=== PATIENT | male | born 1940 | race Caucasian/White ===

== ENCOUNTER 2016-10-12 06:49 | Day surgery (SDC) | payer MEDICARE, BC ==
--- NOTE | ~2016-10-12 | EGD ---
EGD REPORT [facility] [address] [place] [address] NAME: KAMRAN ABREU : 36 STATUS : REG [facility]#: [id number] AGE: 76 ADM/REG DATE : 10/12/16 MR#: [id number] REPORT SERV DATE: 10/12/16 DICTATED BY: AUSTIN STEWART DATE: 10/12/16 REPORT STATUS : Draft [facility]ANS[facility]IBED BY: [facility] DATE: 10/12/16 Endoscopy Center Patient Name: Kamran Abreu Date of : 1940 Attending MD: AUSTIN STEWART MD Procedure Date No Time: 10/12/2016 Procedure: Colonoscopy Indications: High risk colon cancer surveillance: Personal history of Serrated Polyposis Syndrome; last exam August 2015. Patient Profile: Informed consent was obtained from the patient by me prior to the procedure. Risks, benefits, and alternatives were discussed including the risk of bleeding, perforation, infection, reaction to medicine, missed lesion, and cardiopulmonary complications. Referring MD: IGOR JIMENES Medicines: Monitored Anesthesia Care Complications: No immediate complications. Procedure: Pre-Anesthesia Assessment: - ASA Grade Assessment: III - A patient with severe systemic disease. After I obtained informed consent, the scope was passed under direct vision. Throughout the procedure, the patient's blood pressure, pulse, and oxygen saturations were monitored continuously. The CF [id number] was introduced through the anus and advanced to the cecum, identified by appendiceal orifice and ileocecal valve. The colonoscope was slowly withdrawn with careful examination all mucosal surfaces including specific attention around flexures and tip deflection behind folds; retroflexion performed in rectum. The colonoscopy was performed without difficulty. The patient tolerated the procedure well. The quality of the bowel preparation was adequate. The ileocecal valve, appendiceal orifice and rectum were photographed. Findings: A sessile polyp was found in the ascending colon. The polyp was 7 mm in size. The polyp was removed with a cold biopsy forceps. Resection and retrieval were complete. A sessile polyp was found in the rectum. The polyp was 8 mm in size. The polyp was removed with a cold snare. Resection and retrieval were complete. A few small-mouthed diverticula were found in the sigmoid colon. The sigmoid colon (evidence of a previous tattoo X2) appeared normal. EGD REPORT [place] [id number] [facility] [place]. [address] NAME: KAMRAN ABREU : 36 STATUS : REG [facility]#: [id number] AGE: 76 ADM/REG DATE : 10/12/16 MR#: [id number] REPORT SERV DATE: 10/12/16 DICTATED BY: AUSTIN STEWART DATE: 10/12/16 REPORT STATUS : Draft TRANSCRIBED BY: [facility] DATE: 10/12/16 Impression: - One 7 mm polyp in the ascending colon. Resected and retrieved. - One 8 mm polyp in the rectum. Resected and retrieved. - Diverticulosis in the sigmoid colon. - The sigmoid colon is normal. Recommendation: - Patient has a contact number available for emergencies. The signs and symptoms of potential delayed complications were discussed with the patient. Return to normal activities tomorrow. Written discharge instructions were provided to the patient. - Regular diet. - Continue present medications. - Await pathology results. - Repeat colonoscopy in 1 year for surveillance. Procedure Code(s): --- Professional --- 58155, Colonoscopy, flexible, proximal to splenic flexure; with removal of tumor(s), polyp(s), or other lesion(s) by snare technique 89964, 59, Colonoscopy, flexible, proximal to splenic flexure; with biopsy, single or multiple Diagnosis Code(s): --- Professional --- K62.1, Rectal polyp D12.2, Benign neoplasm of ascending colon K57.30, Diverticulosis of large intestine without perforation or abscess without bleeding Z86.010, Personal history of colonic polyps CPT copyright 2013 [employer]. All rights reserved. The codes documented in this report are preliminary and upon hospital orderly review may be revised to meet current compliance requirements. AUSTIN STEWART MD 10/12/2016 9:31 AM This report has been signed electronically. Number of Addenda: 0 Note Initiated On: 10/12/2016 8:50 AM Scope Withdrawal Time 0 hours 14 minutes 0 seconds [id number] [id number]
[~2016-10-12 06:49] MED LIST: ASAB PO; FISH OIL300 MG PO; HYDROCHLOROT25 MG PO; LOPID6 PO; LOTREL1 CA4 PO; MULTIPLE VIT PO; NEUR100 PO; REQUIP4 MG PO; SIN25 PO; [UNRECOGNIZED DRUG - OTHER] PO
== END 2016-10-12 23:59 | disposition home or self-care (01) ==
LOC: DMU 06:49
PROVIDERS: Internal Medicine Gastroenterology
PROC: 0DBK8ZX Excision of Ascending Colon, Via Natural or Artificial Opening Endoscopic, Diagnostic (ICD-10-PCS; principal; 2016-10-12 08:30)
PROC: 0DBP8ZX Excision of Rectum, Via Natural or Artificial Opening Endoscopic, Diagnostic (ICD-10-PCS; 2016-10-12 08:30)
DX: Z12.11 Encounter for screening for malignant neoplasm of colon (principal); D12.2 Benign neoplasm of ascending colon; D12.8 Benign neoplasm of rectum; K57.30 Diverticulosis of large intestine without perforation or abscess without bleeding; E11.9 Type 2 diabetes mellitus without complications; G20 Parkinson's disease; I10 Essential (primary) hypertension; Z88.0 Allergy status to penicillin; Z79.82 Long term (current) use of aspirin; Z79.899 Other long term (current) drug therapy; Z86.010 Personal history of colon polyps; Z90.49 Acquired absence of other specified parts of digestive tract; Z96.652 Presence of left artificial knee joint; Z98.890 Other specified postprocedural states; Z85.46 Personal history of malignant neoplasm of prostate
CPT/HCPCS: 82962; 88305